=== PATIENT | female | born 2000 | race Hispanic/Latino ===

== ENCOUNTER 2020-07-05 18:56 | Emergency (ER) | payer OTHER ==
[~2020-07-05] VITALS: Ht 165.1 cm; Wt 84.1 kg
[2020-07-05] MEDS ORDERED: KETOROLAC 60MG 2ML VIAL IM ONE (19:30)
[2020-07-05 20:30] VITALS: BP 125/69
--- NOTE | 2020-07-05 20:57 | REPVR ---
PROCEDURE INFORMATION: Exam: CT Abdomen And Pelvis Without Contrast Exam date and time: 07/05/2020 7:31 PM Age: 19 years old Clinical indication: Pain and injury or trauma; Fall; Blunt; Generalized; Abdominal pain; Additional info: Pain S/P fall TECHNIQUE: Imaging protocol: Computed tomography of the abdomen and pelvis without contrast. Radiation optimization: All CT scans at this facility use at least one of these dose optimization techniques: automated exposure control; mA and/or kV adjustment per patient size (includes targeted exams where dose is matched to clinical indication); or iterative reconstruction. COMPARISON: No relevant prior studies available. FINDINGS: Liver: The liver is normal. Gallbladder and bile ducts: The gallbladder is normal.No calcified calculi. Normal bile ducts. Pancreas: There is no pancreatic laceration. There is a large relatively hypodense mass which appears to arise from the tail of the pancreas as seen on series 201 images 37-58. Small calcifications are present within the rim of this lesion. Maximal dimensions are 6.5 by 6.0 by 6.0 cm. It cannot be from the splenic hilum or posterior wall of the stomach. Density measurements are slightly greater than clear fluid. The remainder of the pancreas is normal. Spleen: The spleen is normal. Adrenal glands: The adrenals are normal. Kidneys and ureters: The kidneys are normal.No hydronephrosis. Stomach and bowel: Unremarkable. No obstruction. No mucosal thickening. Appendix: No evidence of appendicitis. Intraperitoneal space: There is a trace of free fluid in the pelvic cul-de-sac. The density of the fluid is not consistent with acute hemoperitoneum. There is no fluid collection. There is no evidence of hemoperitoneum. Retroperitoneal space: There is no evidence of retroperitoneal hemorrhage. Vasculature: Unremarkable. No abdominal aortic aneurysm. Lymph nodes: Unremarkable. No enlarged lymph nodes. Urinary bladder: The bladder is normal with no evidence of calculi. Reproductive: Unremarkable as visualized. Bones/joints: Disc space narrowing. No evidence of fracture. Soft tissues: Unremarkable. IMPRESSION: 1. No evidence of acute abdominal or pelvic injury. 2. 6.5 x 6.0 x 6.0 cm hypodense mass probably arising from the tail of the pancreas although it abuts the adjacent spleen and stomach. There are few calcifications within the rim. The differential diagnosis would include pancreatic pseudocyst if there is any history of pancreatitis. Pancreatic neoplasm is also possible, such as solid pseudo papillary tumor or mucinous cystic neoplasm. Pre and post-contrast CT or preferably MRI of the pancreas suggested for further evaluation. Electronically signed by: Jerod Escalera On 07/05/2020 20:57:10 PM
[2020-07-05] MEDS ORDERED: PERCOCET 5MG/325MG TAB PO ONE (21:45)
[2020-07-06] MEDS ORDERED: ACET-683 PO (10:56)
[2020-07-06] MEDS ORDERED: NORG1TAB4 PO (10:56)
== END 2020-07-05 21:36 | disposition home or self-care (01) ==
LOC: M ED 18:56 → EDBD 18:56 → M ED 21:36
DX: S30.1XXA Contusion of abdominal wall, initial encounter (principal); R93.3 Abnormal findings on diagnostic imaging of other parts of digestive tract; W01.198A Fall on same level from slipping, tripping and stumbling with subsequent striking against other object, initial encounter; Y92.410 Unspecified street and highway as the place of occurrence of the external cause; Y93.9 Activity, unspecified; Y99.9 Unspecified external cause status
CPT/HCPCS: 74176; 96372; 99284; J1885

== ENCOUNTER 2020-07-06 09:57 | Emergency (ER) | payer OTHER ==
[~2020-07-06] VITALS: Ht 165.1 cm; Wt 82.9 kg
[2020-07-06] MEDS ORDERED: NS 1,000 ML IV ONE (10:30)
[2020-07-06] MEDS ORDERED: MORPHINE 2 MG/ML 1ML VIAL (J2270) IV ONE ×2 (10:30→13:15)
[2020-07-06] MEDS ORDERED: ISOVUE-370 76% 100ML VIAL As Ordered ONE (10:31)
--- NOTE | 2020-07-06 10:40 | REP ---
INDICATION: fall COMPARISON: None. TECHNIQUE: Axial noncontrast images from the skull base to the vertex with coronal reformations. This CT examination was performed using the following dose reduction techniques: Automated exposure control, adjustment of mA and/or kv according to the patient's size, and use of iterative reconstruction technique. FINDINGS: The ventricles, sulci, and cisterns are normal in position and appearance. Potter-white differentiation is maintained. No acute intracranial hemorrhage, mass/mass effect, pathology or trauma/injury. No evidence for acute infarction. No extra-axial fluid collection. Calvarium is intact. Paranasal sinuses and mastoid air cells are clear. IMPRESSION: Normal noncontrast head CT. No evidence for acute intracranial pathology or trauma/injury. <Electronically signed by Joaquin Bhardwaj > 07/06/20 [id number]
--- NOTE | 2020-07-06 10:41 | REP ---
INDICATION: Trauma COMPARISON: None. TECHNIQUE: Portable AP view of the chest FINDINGS: The mediastinum and cardiac silhouette are stable and within normal limits for portable technique. The lung garnett are clear without acute consolidation, effusion, or pneumothorax. Skeletal structures are intact. IMPRESSION: No acute cardiopulmonary process appreciated. <Electronically signed by Joaquin Bhardwaj > 07/06/20 [id number]
[2020-07-06 10:42] LABS: BASO % 0.2 % (0.0-1.0); HEMATOCRIT 40.4 % (36.0-47.0); HEMOGLOBIN 13.5 g/dl (12.0-15.5); LYMPH # 1.2 10^3/uL (1.5-5.0); MEAN CORPUSCULAR HEMOGLOBIN 28.8 pg (27.0-33.0); MEAN CORPUSCULAR HGB CONC 33.4 g/dl (32.0-36.5); MEAN CORPUSCULAR VOLUME 86.3 fl (80.0-96.0); MONO # 0.7 10^3/uL (0.0-0.8); MONO % 5.6 % (0.0-5.0); NEUTROPHILS # 9.7 10^3/uL (1.5-8.5); NEUTROPHILS % 83.6 % (36.0-66.0); PLATELET COUNT, AUTOMATED 262 10^3/uL (150-450); RED BLOOD COUNT 4.68 10^6/uL (4.00-5.40); WHITE BLOOD COUNT 11.6 10^3/uL (4.0-10.0)
--- NOTE | 2020-07-06 10:43 | REP ---
INDICATION: fall - acute abdomen sp fall onto curb COMPARISON: None TECHNIQUE: Axial contrast enhanced images from the thoracic inlet to the upper abdomen with coronal and sagittal reformations using 100 ml Isovue 370 intravenous contrast material. This CT examination was performed using the following dose reduction techniques: Automated exposure control, adjustment of mA and/or kv according to the patient's size, and use of iterative reconstruction technique. FINDINGS: Bilateral lung garnett are well aerated and clear. No consolidation/contusion, effusion, or pneumothorax. Tracheobronchial tree is patent. The mediastinum demonstrates normal thoracic aorta, pulmonary vasculature, and heart/pericardium. Small amount of residual thymic tissue is identified. There is no evidence for mediastinal hematoma or trauma. Surrounding musculoskeletal structures and soft tissues are normal. IMPRESSION: Normal contrast-enhanced chest CT. No evidence for acute thoracic trauma/injury. No acute mediastinal or pleuroparenchymal process. <Electronically signed by Joaquin Bhardwaj > 07/06/20 [id number]
[2020-07-06] MEDS ORDERED: ONDANSETRON 4MG/2ML VIAL IV ONE (10:45)
[2020-07-06 10:52] LABS: INR 0.95; PROTHROMBIN TIME 12.9 SECONDS (12.5-14.3)
[2020-07-06 10:53] LABS: PARTIAL THROMBOPLASTIN TIME 33.9 SECONDS (24.2-38.5)
--- NOTE | 2020-07-06 10:53 | REP ---
INDICATION: fall - acute abdomen sp fall onto curb. COMPARISON: 07/05/2020 TECHNIQUE: Axial contrast-enhanced images from the lung bases to the pubic symphysis using 100 cc Isovue 370 intravenous contrast material. Coronal and sagittal reformations obtained.. This CT examination was performed using the following dose reduction techniques: Automated exposure control, adjustment of mA and/or kv according to the patient's size, and the use of iterative reconstruction technique. FINDINGS: Liver demonstrates fatty infiltration without focal hepatic lesion or evidence for hepatic injury. Gallbladder, bilateral adrenal glands and kidneys are normal. Spleen is essentially unremarkable. There appears to be a multiloculated septated essentially cystic mass in the left upper quadrant likely arising from the tail of the pancreas with the largest cystic component measuring roughly 6 cm maximal diameter. Lesion does not appear to be traumatic in nature and differential diagnosis would include pseudocyst if there has a possible history of prior pancreatitis as well as mucinous cystic neoplasm. No adjacent inflammatory stranding, free fluid, hemorrhage, or adenopathy is identified. The enteric system is without obstruction or acute inflammatory process. Pelvis demonstrates normal bladder and age-appropriate uterus/adnexa. No ascites. No free air. No intraperitoneal or retroperitoneal adenopathy. Abdominal aorta and vasculature appears normal. Musculoskeletal structures are intact. IMPRESSION: 1. Large cystic septated mass in the left upper quadrant likely rising from the tail of the pancreas. 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 Differential diagnosis includes pseudocyst if there is a history of prior pancreatitis. No associated adenopathy or stranding. 2. No evidence for solid organ injury. 3. Mild hepatosteatosis. <Electronically signed by Joaquin Bhardwaj > 07/06/20 [id number]
[2020-07-06] MEDS ORDERED: NORG1TAB4 PO (10:56)
[2020-07-06] MEDS ORDERED: ACET-683 PO (10:56)
[2020-07-06] MEDS ORDERED: MORPHINE 4 MG/ML 1ML VIAL/SYRINGE (J2270) IV ONE ×2 (11:15→12:30)
[2020-07-06 11:16] LABS: ALBUMIN 4.2 GM/DL (3.2-5.2); ALT/SGPT 36 U/L (12-78); AMYLASE 113 U/L (25-115); BILIRUBIN,DIRECT < 0.1 MG/DL (0.0-0.2); BILIRUBIN,TOTAL 0.4 MG/DL (0.2-1.0); BLOOD UREA NITROGEN 13 MG/DL (7-18); CALCIUM LEVEL 9.7 MG/DL (8.5-10.1); CARBON DIOXIDE LEVEL 23 MEQ/L (21-32); CHLORIDE LEVEL 103 MEQ/L (98-107); GLUCOSE, FASTING 115 MG/DL (70-100); LIPASE 622 U/L (73-393); POTASSIUM SERUM 3.8 MEQ/L (3.5-5.1); SODIUM LEVEL 138 MEQ/L (136-145); TOTAL PROTEIN 8.6 GM/DL (6.4-8.2)
[2020-07-06 11:37] LABS: RSV AMPLIFICATION NEGATIVE (NEGATIVE)
--- NOTE | 2020-07-06 12:28 | ECGEPIP ---
[facility] - ED Test Date: 2020-07-06 Pat Name: JOSSE DYER Department: Room: - Gender: Female Desk Manager: : 2000 Requested By: Deborah Corona Order Number: [id number] Reading MD: Tana Cruz Measurements Intervals [place] Rate: 75 P: 61 IN: 153 QRS: 60 QRSD: 93 T: 54 QT: 397 QTc: 444 Interpretive Statements SINUS RHYTHM No prior Electronically Signed on 07-06-2020 12:28:23 EST by Tana Cruz
[2020-07-06 13:12] VITALS: BP 144/84
== END 2020-07-06 13:20 | disposition short-term general hospital (02) ==
LOC: M ED 09:57
DX: S39.91XA Unspecified injury of abdomen, initial encounter (principal); S36.209A Unspecified injury of unspecified part of pancreas, initial encounter; R93.3 Abnormal findings on diagnostic imaging of other parts of digestive tract; W19.XXXA Unspecified fall, initial encounter; Y92.9 Unspecified place or not applicable; Y93.9 Activity, unspecified; Y99.9 Unspecified external cause status; Z79.3 Long term (current) use of hormonal contraceptives
CPT/HCPCS: 70450; 71045; 71260; 74177; 80048; 80076; 82150; 83605; 83690; 85025; 85610; 85730; 86850; 86900; 86901; 87631; 93005; 93041; 94760; 96374; 96375; 96376; 99285; J2270; J2405; Q9967